=== PATIENT | female | born 1960 | race Caucasian/White ===

== ENCOUNTER 2018-04-07 18:02 | Outpatient (REF) | payer BC, SELFPAY ==
[2018-04-07 19:02] LABS: ALT 29 U/L (12-78); AST 21 U/L (15-37); Albumin 3.8 g/dL (3.4-5.0); Alkaline Phosphatase 112 U/L (46-116); Anion Gap 7.8 mmol/L (3-11); BUN 15 mg/dL (7-18); Bilirubin, Total 0.2 mg/dL (0.2-1.0); CO2 25.2 mmol/L (21.0-32.0); CREATININE 1.02 mg/dL (0.55-1.02); Calcium 8.5 mg/dL (8.5-10.1); Chloride 104 mmol/L (98-107); Estimated GFR 56.06 (mL/min/1.73m2); Glucose 120 mg/dL (70-100); Potassium 3.7 mmol/L (3.5-5.1); Sodium 137 mmol/L (136-145); Total Protein 7.2 g/dL (6.4-8.2)
[2018-04-07 19:34] LABS: HCT 41.4 % (36.0-46.0); HGB 14.2 g/dL (12.0-15.5); Mean Corp. HGB Concentration 34.3 g/dL (32.0-36.0); Mean Corpuscular Hemoglobin 30.7 pg (27.0-33.0); Mean Corpuscular Volume 89.6 fL (80-95); Mean Platelet Volume 9.9 fL (8.0-11.0); Platelet Count 257 x1000/uL (130-400); RBC 4.62 m/cumm (4.00-5.20); White Blood Cell Count 9.91 k/cumm (4.4-10.8)
== END 2018-04-07 18:22 ==
LOC: NCHCN 18:02
PROVIDERS: PCP Nurse Practitioner Family; Visit Provider Nurse Practitioner Family
DX: R11.0 Nausea (principal); R51 Headache
CPT/HCPCS: 80053; 85027

== ENCOUNTER 2018-09-08 14:21 | Outpatient (CLI) | payer BC, SELFPAY ==
--- NOTE | 2018-09-08 11:06 | DI.RAD_ITS ---
SYMPTOMS/DIAGNOSIS: COUGH X 2 WEEKS, R05 PA AND LATERAL CHEST: Comparison is made with August,. The heart size is normal. The lungs are well inflated and clear. No infiltrate or effusion is seen. IMPRESSION: Negative chest x-ray.
== END 2018-09-08 14:41 ==
PROVIDERS: PCP Nurse Practitioner Family; Visit Provider Nurse Practitioner Family
DX: R05 Cough (principal)
CPT/HCPCS: 71046

== ENCOUNTER 2018-11-23 15:11 | Emergency (ER) | payer BC, SELFPAY ==
[2018-11-23 15:17] VITALS: BP 119/87; PULSE 106; RESP 18; TEMP 37; O2SAT 94
--- NOTE | 2018-11-23 15:20 | ED.GENADUL_ITS ---
Discharge Plan Disposition Patient Disposition: HOME Condition: Good Discharge Details Chief Complaint: Dizzy/Sync Clinical Impression: Peripheral vertigo Primary Care Provider: Danita Gan ED Provider: Benjamin Martinez [place] Meds and New Rx's Prescriptions: New meclizine 25 mg tablet 25 mg PO BID-TID PRN (Reason: dizziness) Qty: 20 RF: 0 Continued fluocinolone 15 GM cream 1 moni Topical BID PRNQty: 15 RF: 4 ibuprofen 800 MG tablet 800 mg PO TID PRNRF: 0 acetaminophen [Acetaminophen Extra Strength] 500 MG tablet 1,000 mg PO Q6H PRNRF: 0 dextroamphetamine-amphetamine [Adderall] 10 MG tablet 10 mg PO BID prn Qty: 60 RF: 0 trazodone 50 MG tablet 75 mg PO HS PRNRF: 0 sertraline [Zoloft] 100 mg Tablet 100 PO DAILY RF: 0 bupropion HCl [Wellbutrin XL] 300 MG tablet extended release 24 hr 450 mg PO QAM RF: 0 Discharge Instructions Instructions: Benign Paroxysmal Positional Vertigo (ED) Additional Instructions: You may take the meclizine if the vertigo becomes bothersome. Typically will resolve on its own but if still on going by next week follow up with PCP or ENT. If you develop any neurological changes, headache, vision problems, inability to walk return to ED. Referrals: Danita Gan [Primary Care Provider] - Hugo Higginbotham MD [ [facility] STAFF PHYSICIAN] - Medical Decision Making Patient here with episodes of intense vertigo lasting seconds to minutes. She has a normal neurological exam. She has slight nystagmus with left gaze for 2-3 beats. She does not have persistent vertigo. She has no other symptomatology. This appears to be positional vertigo. We discussed use of meclizine but since her episodes do not last very long side effects may not be worth it. We discussed follow-up with primary care or ENT if continued symptoms into next week. She had been weaned off Effexor started on Zoloft which was titrated up. Do not think this is medication effect. Discussed warning signs to return for including headache, vision change, neurologic change, persistent vertigo. Patient EKG from triage is sinus rhythm with no acute changes. I do not think she needs imaging or labs at this time. ECG Data Attestation: I personally reviewed and interpreted this ECG (s) as follows: Prior ECG tracings: not available for review Interpretation: Sinus rhythm at a rate of 98. Normal axis and intervals. Nonspecific ST flattening but no acute depression or elevation. HPI General Mode of arrival: ambulatory . Date/Time Provider Initiated Documentation: 11/23/18 15:17 . Limitations to Documentation: no limitations . Information obtained by: patient . HPI Narrative: Patient presents to the ED with complaints of dizziness. Patient reports that for the last few days now she is having episodes of dizziness. They are especially bothersome when she rolls over in bed or changes position. The vertigo is not present continuously. It does resolve in seconds to minutes after moving. She does describe it as a spinning sensation. She has no headache or URI symptoms. She has had no hearing change. She has no chest pain, shortness of breath, palpitations. She denies nausea/vomiting. She has no difficulty ambulating. She has no other neurological symptoms. Related Data Home Medications Medication Instructions Recorded Confirmed fluocinolone 1 moni TOPICAL BID PRN #15 gm 03/23/15 11/23/18 acetaminophen [Acetaminophen Extra 1,000 mg PO Q6H PRN tab-cap 02/09/16 11/23/18 Strength] ibuprofen 800 mg PO TID PRN tab-cap 02/09/16 11/23/18 dextroamphetamine-amphetamine 10 mg PO BID prn #60 tab-cap 06/16/17 11/23/18 [Adderall] trazodone 75 mg PO HS PRN tab-cap NS 11/28/17 11/23/18 bupropion HCl [Wellbutrin XL] 450 mg PO QAM 11/23/18 11/23/18 meclizine 25 mg PO BID-TID PRN #20 tab 11/23/18 sertraline [Zoloft] 100 PO DAILY 11/23/18 Previous Rx's Medication Instructions Recorded meclizine 25 mg PO BID-TID PRN #20 tab 11/23/18 Allergies Allergy/AdvReac Type Severity Reaction Status Date / Time No Known Allergies Allergy Unverified 01/16/18 08:44 Review of Systems Review of Systems As documented in HPI otherwise negative as below. Const: no fever, chills, weakness Resp: no cough, SOB, pleuritic pain CV: no CP, diaphoresis, edema, syncope GI: no abdominal pain, nausea, vomiting, diarrhea Neuro: no headache, numbness, focal weakness, confusion PFSH Medical History Depressive disorder (Chronic) Tobacco dependence (Chronic) Surgical History PROCEDURES (Resolved) Colonoscopy - MAC (Inactive 01/16/18) Family History Mother Essential hypertension Hyperlipidemia Neoplasm Father Essential hypertension Heart disease Stroke Asthma Sister Essential hypertension Arthritis Depression Hyperlipidemia Grandfather Essential hypertension Heart disease Stroke Grandfather Asthma Grandmother No problems noted. Grandmother Myocardial infarction Neoplasm Maternal Cousin Neoplasm Stroke Maternal Aunt Neoplasm Nephew Neoplasm Sister Alcohol abuse Essential hypertension Hyperlipidemia Social History Smoking/Tobacco Use Status: Current every day Tobacco Type: cigarettes Smoking cigarettes per day: 8 Alcohol Intake: never Drug use: Occasionally Substance use type: marijuana Do you feel safe at home: Yes Do you feel safe in your relationship?: Yes Exam Narrative Exam Narrative: Vitals: Initially, mildly tachycardic which resolved. Afebrile. Const: WDWN female in NAD. HEENT: NC/AT. Normal facial exam. OP normal. TMs normal. Eyes: Normal conjunctiva and sclera. PERRL and EOMI. Two to three beat horiz ontal nystagmus with left gaze. Neck: Supple. Trachea midline. Lungs: Normal respiratory effort. Lungs are clear. Cor: RRR without murmur/gallop. Good radial pulses. Neuro: A+O x 3. CN II-XII are in tact. Speech is normal. Mental status is normal. Strength is 5/5 throughout. Sensory is normal. FTN, HTS is normal. Gait normal. Ext: No C/C/E. No deformity or tenderness. Skin: Warm and dry without rash.
[2018-11-23 16:12] VITALS: BP 123/66; PULSE 91; RESP 18; O2SAT 94
[2018-11-23 16:25] VITALS: BP 123/66; PULSE 91; RESP 18; TEMP 37; O2SAT 94
== END 2018-11-23 16:21 | disposition home or self-care (01) ==
PROVIDERS: Emergency Provider Emergency Medicine; PCP Nurse Practitioner Family
DX: H81.392 Other peripheral vertigo, left ear (principal)
CPT/HCPCS: 93005; 99283; 93010

== ENCOUNTER 2019-05-24 19:39 | Outpatient (REF) | payer BC, SELFPAY ==
[2019-05-24 19:14] LABS: HCT 39.3 % (36.0-46.0); HGB 13.4 g/dL (12.0-15.5); Mean Corp. HGB Concentration 34.1 g/dL (32.0-36.0); Mean Corpuscular Hemoglobin 29.9 pg (27.0-33.0); Mean Corpuscular Volume 87.7 fL (80-95); Mean Platelet Volume 9.4 fL (8.0-11.0); Platelet Count 268 x1000/uL (130-400); RBC 4.48 m/cumm (4.00-5.20); RBC Distribution Width 13.5 % (11.7-14.6); White Blood Cell Count 6.67 k/cumm (4.4-10.8)
[2019-05-24 19:22] LABS: Iron 79 ug/dL (50-175); Total Iron Binding Capacity 286 ug/dL (250-450); Transferrin Sat 28 % (15-50)
[2019-05-24 19:40] LABS: Anion Gap 14.1 mmol/L (3-11); BUN 11 mg/dL (7-18); CO2 23.9 mmol/L (21.0-32.0); CREATININE 1.05 mg/dL (0.55-1.02); Calcium 8.9 mg/dL (8.5-10.1); Chloride 103 mmol/L (98-107); Estimated GFR 54.02 (mL/min/1.73m2); Glucose 104 mg/dL (70-100); Potassium 3.9 mmol/L (3.5-5.1); Sodium 141 mmol/L (136-145); TSH (W/Ref FT4) 1.86 uIU/mL (0.36-3.74)
[2019-05-24 20:25] LABS: Vitamin D 25 Total 17.1 ng/ml (30-100)
[2019-05-24 20:33] LABS: Vitamin B12 434 pg/mL (193-986)
== END 2019-05-24 19:59 ==
LOC: NCHCN 19:39
PROVIDERS: PCP Nurse Practitioner Family; Visit Provider Nurse Practitioner Family
DX: R53.83 Other fatigue (principal); H81.10 Benign paroxysmal vertigo, unspecified ear
CPT/HCPCS: 80048; 82306; 85027; 82607; 83540; 83550; 84443

== ENCOUNTER 2019-09-13 15:00 | Outpatient (CLI) | payer BC, SELFPAY ==
--- NOTE | 2019-09-13 15:19 | DI.RAD_ITS ---
EXAM: XR HIP RT COMPLETE AND AP PELVIS INDICATION: RIGHT HIP PAIN. COMPARISON: No exams were available for comparison TECHNIQUE: 2D digital imaging was performed. FINDINGS: There are severe degenerative changes of the right hip. There is now obliteration of the superior donavon int space and subchondral cyst formation. There is slight deformity of the superior acetabulum and f emoral head. There is spurring from the margins of the femoral head. There is spurring at the left hip without joint space narrowing. SI joints are unremarkable. IMPRESSION: Severe degenerative changes of the right hip.
== END 2019-09-13 15:20 ==
PROVIDERS: PCP Nurse Practitioner Family; Visit Provider Physician Assistant
DX: M25.551 Pain in right hip (principal); M16.11 Unilateral primary osteoarthritis, right hip
CPT/HCPCS: 73502

== ENCOUNTER 2019-12-10 02:55 | Outpatient (CLI) | payer BC, SELFPAY ==
[2019-12-10 14:02] LABS: HCT 41.6 % (36.0-46.0); HGB 14.5 g/dL (12.0-15.5); Mean Corp. HGB Concentration 34.9 g/dL (32.0-36.0); Mean Corpuscular Hemoglobin 30.5 pg (27.0-33.0); Mean Corpuscular Volume 87.6 fL (80-95); Mean Platelet Volume 8.5 fL (8.0-11.0); Platelet Count 262 x1000/uL (130-400); RBC 4.75 m/cumm (4.00-5.20); RBC Distribution Width 12.8 % (11.7-14.6); White Blood Cell Count 9.46 k/cumm (4.4-10.8)
[2019-12-10 15:10] LABS: Anion Gap 11.3 mmol/L (3-11); BUN 16 mg/dL (7-18); CO2 26.7 mmol/L (21.0-32.0); CREATININE 1.24 mg/dL (0.55-1.02); Calcium 9.8 mg/dL (8.5-10.1); Chloride 101 mmol/L (98-107); Estimated GFR 44.43 (mL/min/1.73m2); Glucose 82 mg/dL (74-106); Potassium 4.4 mmol/L (3.5-5.1); Sodium 139 mmol/L (136-145)
== END 2019-12-10 03:15 ==
PROVIDERS: PCP Nurse Practitioner Family; Visit Provider Student in an Organized Health Care Education/Training Program
DX: M25.551 Pain in right hip (principal); M16.11 Unilateral primary osteoarthritis, right hip; Z01.818 Encounter for other preprocedural examination; Z01.812 Encounter for preprocedural laboratory examination
CPT/HCPCS: 36415; 80048; 85027; 86850; 86900; 86901

== ENCOUNTER 2019-12-10 09:02 | Outpatient (CLI) | payer BC, SELFPAY ==
[2019-12-13 15:08] LABS: COVID-19 RT-PCR UVMMC Result Negative (Negative)
== END 2019-12-10 09:22 ==
PROVIDERS: PCP Nurse Practitioner Family; Visit Provider Student in an Organized Health Care Education/Training Program
DX: Z11.59 Encounter for screening for other viral diseases (principal); Z01.818 Encounter for other preprocedural examination; M16.11 Unilateral primary osteoarthritis, right hip
CPT/HCPCS: U0003

== ENCOUNTER 2019-12-14 09:02 | Observation (INO) | payer BC, SELFPAY ==
[2019-12-14] VITALS (22 sets, daily range): BP systolic 71–115; BP diastolic 34–68; PULSE 71–97; RESP 10–18; TEMP 36.2–36.6; O2SAT 92–100
--- NOTE | 2019-12-14 08:48 | HPE_ITS ---
Date of service: 12/14/19 Assessment and Plan Assessment and plan (1) Arthritis of right hip: Status: Acute Assessment and plan: Right total hip replacement Details of surgery were discussed with patient as well as risks and pertinent anatomy. All questions were answered. History of Present Illness History of Present Illness Chief Complaint: Right hip pain Narrative: Bre is a 59-year-old female who comes in for surgery today for a right total hip replacement. She states that her right hip has been bothering her for many months, and almost a year. Over that time she has had treatment with a chiropractor and manipulation, as well as an injection for trochanteric bursitis on the right hip. She states that she did not get significant relief from this injection, and the manipulations have not had the desired effect over the last many months. She has pain especially when ascending stairs, and when she tries to ambulate after seated for a long period of time. She has had x-rays done which reveal pretty severe arthritis of the right hip including a complete loss of joint space and bone spurring throughout the acetabulum and femoral head. Since she is failed conservative treatment, Dr. Cano does offer a right total hip replacement, and Bre is anxious to proceed. Pertinent Surgical Information Patient denies history of hypertension, CVA, CO, angina, asthma, COPD, renal or liver disorders, hepatitis, bleeding disorders, diabetes, immune or thyroid disorders. No complications from anesthesia. Review of Systems Constitutional Constitutional: Denies fever(s) ENT Ears, Nose, Mouth, and Throat: Denies dizziness and Denies sore throat Cardiovascular Cardiovascular: Denies chest pain, Denies palpitations and Denies dyspnea Respiratory Respiratory: Denies cough and Denies dyspnea Gastrointestinal Gastrointestinal: Denies abdominal pain, Denies melena, Denies hematochezia, Denies diarrhea, Denies nausea and Denies vomiting Genitourinary Genitourinary: Denies hematuria and Denies dysuria Neurologic Neurologic: Denies dizziness Endocrine Endocrine: Denies palpitations [facility] Medical History Arthritis of right hip (Acute) Depressive disorder (Chronic) hospitalized 2009 Greater trochanteric bursitis of right hip (Acute) Injection: 06/30/19; 09/30/16 History of electroconvulsive therapy (Acute) Tobacco dependence (Chronic) Surgical History Colonoscopy - MAC (Inactive 01/16/18) PROCEDURES (Resolved) bilat shoulders, calcium deposits & r side trimmed clavicle.HE Family History Mother Essential hypertension Hyperlipidemia Neoplasm LUNG/BREAST Father Essential hypertension Heart disease A Fib Stroke Asthma Sister Essential hypertension Arthritis Severe spine Depression Hyperlipidemia Grandfather Essential hypertension Heart disease Stroke Grandfather Asthma Grandmother No problems noted. Grandmother Myocardial infarction Neoplasm BREAST Maternal Cousin Neoplasm BREAST Stroke Maternal Aunt Neoplasm BREAST Nephew Neoplasm BRAIN Sister Alcohol abuse Essential hypertension Hyperlipidemia Social History Smoking/Tobacco Use Status: Current every day Tobacco Type: cigarettes Alcohol Intake: never Drug use: Occasionally Substance use type: marijuana Current gender identity: female Do you feel safe at home: Yes Do you feel safe in your relationship?: Yes Meds Home Medications and Allergies Home Medications Medication Instructions Recorded Confirmed Type acetaminophen [Acetaminophen Extra 1,000 mg PO Q6H PRN tab-cap 02/09/16 12/08/19 History Strength] ibuprofen 800 mg PO TID PRN tab-cap 02/09/16 12/08/19 History dextroamphetamine-amphetamine 10 mg PO BID #60 tab-cap 06/16/17 12/08/19 History [Adderall] trazodone 50 mg PO HS PRN tab-cap NS 11/28/17 12/08/19 History bupropion HCl [Wellbutrin XL] 450 mg PO QAM 11/23/18 12/08/19 History sertraline [Zoloft] 150 mg PO DAILY 11/23/18 12/08/19 History dextroamphetamine-amphetamine ER 20 mg PO DAILY 06/30/19 12/08/19 History 20 mg 24hr capsule,extend release tramadol 50 mg tablet 50 mg PO QHS #21 tab 10/20/19 12/08/19 Rx Allergies Allergy/AdvReac Type Severity Reaction Status Date / Time No Known Allergies Allergy Unverified 12/08/19 12:37 Exam Const General: cooperative and no acute distress Orientation: alert and awake HENIA Head: normocephalic and atraumatic General nose exam: no nasal discharge Eyes Conjunctivae: conjunctivae normal Sclera: sclerae normal Resp Effort & Inspection: normal respiratory effort Auscultation: clear to auscultation bilaterally and no wheezes Cardio Rate: regular rate Rhythm: regular rhythm Heart Sounds: S1 normal, S2 normal and no murmurs GI Palpation: soft, no hepatosplenomegaly and nontender Auscultation: normal bowel sounds
[2019-12-14] MEDS: Lactated Ringers 1,000 ML 80 ML IV ×3 (09:47→16:49)
--- NOTE | 2019-12-14 10:15 | DI.RAD_ITS ---
EXAM: XR HIP RT IN OR CLINICAL HISTORY: right total hip arthroplasty TECHNIQUE: 2D and realtime digital imaging was performed. Fluoroscopy was provided in the OR COMPARISON: No exams were available for comparison FINDINGS: C-arm fluoroscopy was utilized by Dr. Cano during total right hip joint replacement. Hard copy s hows total hip joint replacement in position. Fluoro time was 51.7 seconds. IMPRESSION: RADIATION DOSE DELIVERED: Total DLP
[2019-12-14] MEDS: Acetaminophen 500 MG TAB 1000 MG PO ×2 (10:19→16:24)
[2019-12-14] MEDS: Celecoxib 200 MG CAP 400 MG PO (10:19)
[2019-12-14] MEDS: ceFAZolin 2 GM/50 ML BAG IVPB (11:12)
[2019-12-14] MEDS: Ketorolac 30 MG/ML VIAL (11:55)
[2019-12-14] MEDS: Bupivacaine 0.25% Pres-Free 30 ML VIAL (12:02)
[2019-12-14] MEDS: HYDROmorphone 2 MG/ML VIAL IVP ×2 (13:26→13:39)
[2019-12-14] MEDS: Normal Saline Flush 10 ML SYR IV (13:26)
--- NOTE | 2019-12-14 14:06 | W.PM.OP ---
Date of service: 12/14/19 Time of Service: 13:06 Operative Note Operative Note DATE OF PROCEDURE: 12/14/19 PRE-OP DIAGNOSIS: Right Hip Osteoarthritis POST-OP DIAGNOSIS: same PROCEDURE: Right Anterior Total Hip Arthroplasty SURGEON: Daniel Cano FREIGHT CAR INSPECTOR: Samantha Rosario ANESTHESIA: spinal ESTIMATED BLOOD LOSS: 300 PATHOLOGY: none sent TOURNIQUET TIME: 0 COMPLICATIONS: None Patient was transported to: PACU Patient's condition: stable Implants: 1. Depuy [place] Acetabular Component, 52mm 2. Depuy Acetabular Liner, 39w98mc 3. Depuy Corail Standard Collared Femoral Stem, Size 10 4. Depuy Altrx Ceramic Femoral Head, Size 32+5mm Indications: I have seen Bre in clinic for symptoms of hip arthritis, confirmed with radiographic findings. Bre has exhausted nonoperative methods and was having significant limitations in daily function and desired better function and less pain. I discussed the technical details of a hip replacement. I explained the risks of the procedure to include, but not limited to, bleeding, infection, pain, stiffness, fracture, damage to nerves and vessels, damage to muscles and tendons, loosening, instability, leg length inequality, need for repeat procedure, blood clot and cardiopulmonary demise. Despite these risks, she elected to proceed. Findings: There was significant signs of arthritis throughout the hip. Large osteophytes were present around the femoral neck as well as a significant floor osteophyte. Procedure Description: Bre was greeted in the preoperative holding area where the correct side was identified and marked. The consent was reviewed with the patient and signed. The history and physical was updated. All questions were answered. Bre was taken back to the operating room. A spinal anesthestic was then administered. The patient was placed into the supine position on the operating room table. The patient was then positioned onto the ARCH table. Both feet were wrapped with [place] cotton wrap along with Coban. The feet were placed in specialized boots for the ARCH table, well seated within the boot and secured. SCDs were applied. The patient was then slid down onto a peroneal post and the nonoperative leg was secured in a leg lemons attached to the table. The operative side was placed into the ARCH table attachment and bed height and positioning was secured. A preoperative AP pelvis was obtained to serve as a reference for determining leg lengths. Prophylactic antibiotics in the form of Cefazolin were administered. 1g of Tranxemic Acid was given intravenously within 30 minutes of incision. The right leg was then prepped with Chloraprep and draped in a standard fashion. A second prep with Chloraprep was performed prior to placement of a shower-curtain type drape with Iodine impregnated skin protection. A timeout to confirm correct identity, side and site, procedure, allergies, anesthesia, and medical concerns was performed. An obliquely oriented incision was made starting lateral to the ASIS and running distal over the Tensor Fascia Maggi (TFL) muscle belly toward the fibular head, approximately 10cm. The skin and soft tissue was dissected sharply, through Dawn?s fascia, and to the fascia of the TFL. With the fascia and superior border of the IT band identified, the fascia was incised with a new knife just above any perforators from the IT band. The TFL muscle belly was bluntly dissected away from the fascia and moved laterally. The fat between TFL and rectus was identified to ensure the dissection was not within the TFL. Blunt dissection created space between abductors and the capsule and retractor was placed over the lateral femoral neck. The fibers of the rectus femoris tendon were identified and these were freed from the anterior capsule. A second cobra retractor was placed around the medial femoral neck. The TFL was further retracted laterally to show the deep fascia. Careful dissection through this layer identified three main crossing vessels of the lateral femoral circumflex. These were cauterized in multiple locations and then cut without any noticeable bleeding. The TFL was further released bluntly from the deep fascia to expose anterior hip capsule and fat The Angelo orthopaedic retractor was then placed beneath the TFL and against sartorius and medial soft tissues to protect and retract the soft tissues. A T-capsulotomy was then performed starting at the superior lateral acetabulum and moving distally to the intertrochanteric ridge. These capsular flaps were tagged with a No. 1 Ethibond and elevated from within. The capsular flaps were released to the shoulder of the lateral neck and to the lesser trochanter to give excellent visualization of the proximal femur. A neck osteotomy was performed using an oscillating saw based on preoperative templates. This cut started in the shoulder and of the lateral neck and exited medially. The saw was at all times directed medially to avoid injury to the greater trochanter. 6cm of traction was applied to the leg and the osteotomy opened. The femoral head was removed with a corkscrew, making sure to protect the TFL on its exit. This was measured on the back table to determing the starting reamer size. Portions of the rectus obscuring visualization were minimally elevated off the superior acetabulum. An anterior retractor was placed over the anterior wall between capsule and labrum and attached to the Gripper retraction system. A posterior retractor was placed similarly. This provided excellent visualization. The contents of the cotyloid fossa were removed with electrocautery and the labrum was removed with a knife. There was a notable floor osteophyte. There was significant chondromalacia of the superior acetabulum. Acetabular reaming began with a 48 mm reamer. This first reaming was directed anterior to posterior and medial to get down to the true floor. This was inspected and reamed until the true floor was reached. I then reamed sequentially up to a 52 mm reamer where good fit was obtained. The larger reamers were oriented based on anatomical reference of the anterior and lateral cornelius to ensure proper abduction and anteversion. Positioning and size was confirmed with the fluoroscopy. A 52 mm Depuy [place] acetabular component was selected. The deep tissues were irrigated. The acetabular component was then impacted in a position of about 40-45 degrees of abduction and 15-20 degrees of anteversion, using the patient?s anatomy as the ultimate landmark. Fluoroscopy was used to confirm this. There was excellent canal superintendent of the acetabular component and the inserting handle was removed. The acetabular liner, Depuy [id number] polyethylene liner, was inserted and lined up with the tines of the acetabular component. There was no soft tissue interposition. The liner was then impacted into position and confirmed to be well-seated. A portion of the wendy-articular cocktail was then injected around the acetabulum into the capsule and periosteum. This cocktail consisted of 50cc of 0.25% Bupivicaine and 20cc of Exparel, expanded to a total of 120cc. Traction was released from the femur. The leg was rotated to 120 degrees. Any remaining medial capsule was released until the lesser trochanter was easily palpable. A Bryan retractor was placed medially. The lateral capsule was further released into the shoulder to allow access to the greater trochanter. A Bryan retractor was placed over the greater trochanter which allowed the trochanter to flip in front of the capsule for excellent exposure. The leg was brought down into maximal extension and 20 degrees of adduction while ensuring there was no impingement on the acetabulum. Any remnant capsule within the trochanter was released. Piriformis and obturator externis were identified and protected. There was excellent access to the proximal femur. The lateral neck remnant was removed with a rongeur. A blunt canal probe was used to identify the canal and trajectory for later broaching. A box osteotome initiated the broach course. A small curved rasp and a curved curette were used to work laterally. Broaching then began with a size 8 Corail broach. This was inserted manually around the trochanter and into the canal before mallet blows. The broach was seated to a few millimeters below the cut level based on the neck cut and the preoperative template. Sequential broaching was continued with the [employer] pneumatic broaching device until a tight fit was obtained with good rotational control of the femur. A trial standard neck was inserted along with a +1 trial head. The leg was brought out of extension and adduction and then reduced with traction and internal rotation. The leg was stable anteriorly in a position of 30 degrees of extension and 90 degrees of external rotation. Fluoroscopy was used to ensure there was no fracture and the stem was seated well. Leg lengths were checked with an AP pelvis and pelvic reference points. She seemed to be a little under offset as well as leg lengths based on visual inspection as well as the use of joint point navigation. A +5 head would re-create the offset and also give the needed 4 mm of leg length. Once content with the desired offset and leg lengths, the leg was brought back into extension, external rotation and adduction. The periosteum and surrounding tissue was injected with remaining portion of the wendy-articular cocktail. The proximal femur was irrigated as well as the deep tissues. The Depuy Corail standard collared stem, size 10, was then manually inserted into the proximal femur making sure to control rotation. It was then malleted into position with light blows, giving breaks to allow bone expansion and decrease risk of fracture. The selected Depuy Altrx Ceramic Head, size 32+5mm, was then placed onto the clean and dry trunnion and secured with impaction onto the tapered fit. The leg was brought back out of extension and adduction and reduced with traction and internal rotation. Stability was confirmed with no shuck at 90 degrees of external rotation and 30 degrees of extension. No impingement through range of motion arc. Final x-ray images were obtained with fluoroscopy to confirm adequate positioning and no intraoperative fracture. The deep tissues were thoroughly irrigated with Irrisept chlorhexadine solution. The second dose of TXA 1g was administered intravenously. The capsule was then reapproximated with the previously placed Ethibond sutures. The TFL fascia was finally closed with a No. 2 Stratafix, barbed suture. Deep tissues were then reapproximated with 0 Vicryl and a running 2-0 Vicryl. The skin was closed with a running 4-0 Monocryl in a subcuticular fashion. This was reinforced with skin glue. A Mepilex silver dressing was applied. At the end of the case, all counts were correct. Bre was transferred to the hospital bed without difficulty and suffering no apparent complication. Bre has a good prognosis. Physical therapy will start today and without restrictions, weight-bearing as tolerated. Aspirin 81mg BID will be used for DVT prophylaxis.
--- NOTE | 2019-12-14 14:16 | DSE_ITS ---
Date of service: 12/14/19 Time of Service: 14:16 DS: Diagnosis Discharge Diagnosis (1) Arthritis of right hip: Status: Acute Discharge Plan Disposition Patient Disposition: HOME Condition: Good Discharge Details Reason For Visit: TOTAL HIP Admit Date/Time: 12/14/19 09:02 Admit Provider: Daniel Cano Attending Provider: Daniel Cano Primary Care Provider: Danita Gan [facility] Hospital Course: Patient was admitted to the medical/surgical floor following the procedure. It was tolerated well without any notable medical, surgical, or anesthetic complications. Mobilization began postoperatively. Vitals were stable. Physical therapy worked with the patient and was cleared for discharge home. No acute medical issues. Home Meds and New Rx's Prescriptions: New aspirin 81 mg tablet,delayed release (DR/EC) 81 mg PO BID Qty: 60 RF: 0 acetaminophen 500 mg tablet 1,000 mg PO Q8H PRN (Reason: pain) Qty: 90 RF: 3 pantoprazole 40 mg tablet,delayed release (DR/EC) 40 mg PO DAILY Qty: 30 RF: 0 ibuprofen 600 mg tablet 600 mg PO TID PRNQty: 90 RF: 3 oxycodone 5 mg tablet 5 mg PO Q4H Qty: 18 RF: 0 Continued dextroamphetamine-amphetamine [Adderall XR] 20 mg capsule,extended release 24hr 20 mg PO DAILY RF: 0 dextroamphetamine-amphetamine [Adderall] 10 MG tablet 10 mg PO BID Qty: 60 RF: 0 trazodone 50 MG tablet 50 mg PO HS PRNRF: 0 sertraline [Zoloft] 100 mg Tablet 150 mg PO DAILY RF: 0 bupropion HCl [Wellbutrin XL] 300 MG tablet extended release 24 hr 450 mg PO QAM RF: 0 Discontinued ibuprofen 800 MG tablet 800 mg PO TID PRNRF: 0 acetaminophen [Acetaminophen Extra Strength] 500 MG tablet 1,000 mg PO Q6H PRNRF: 0 tramadol 50 mg tablet 50 mg PO QHS Qty: 21 RF: 0 Discharge Instructions Additional Instructions: Dr. Cano?s Total Hip Discharge Instructions Activity: The most important activity is to walk. You should try to take short walks a few times a day. You have no restrictions on movement or positioning, but do not try to force what you do. You will find some stiffness and weakness with hip flexion (lifting your knee). Do not try to strengthen this too early, continue to practice walking and stairs and this will come. It is normal to have pain and some of this will respond to ice, massage, and sometimes heat. Repositioning may also provide relief. - Outpatient physical therapy can be helpful to help return you to a normal gait and improve your flexibility and strength. This can start around 2 weeks. For some patients, it?s not necessary. Usually this is determined at the time of discharge or at the first post-operative visit. - You should wear the MARYSE hose on both legs for 2 weeks. Dressing: Keep the surgical dressing in place for at least one week. After the first week it may be removed and replace with light gauze and tape or nothing. It may get wet after 3 days but avoid soaking the dressing. If it gets wet, just lightly pat dry. It is important to always keep some gauze between skin folds, especially when you are sitting. Spend some time with the wound exposed when you are lying flat as the incision does wrinkle onto itself. Medications: - You should take Tylenol and an anti-inflammatory Ibuprofen as your primary pain control medications - You have been prescribed a stronger pain medication Oxycodone for breakthrough pain, take as needed as prescribed. - You have also been prescribed a stomach acid reduction agent Pantoprozole to help reduce stomach acid and reflux. - You will be taking Aspirin 81mg twice a day for DVT prevention unless instructed otherwise. - If you have constipation you should take Colace or Miralax (both [id number]). It takes most people 3-4 days to have a bowel movement. Follow-up: 2 weeks. If you have any issues or concerns, you should contact Dr. Cano's office at [phone] or directly at [phone]. Referrals: Daniel Cano MD [ [facility] STAFF PHYSICIAN] - Activity:: Activity as Tolerated Equipment/Supplies:: Walker Diet:: As Tolerated Discharge Orders Discharge Orders: Discharge Order (Routine); Ordered 12/14/19 Ordered By: Daniel Cano DS: Summary Status at Discharge Functional status at discharge: uses cane/walker Overall status at discharge: patient is progressing back to baseline Mental Status: mental status grossly normal Speech and Movement: speech and movement normal Mood: congruent mood Affect: normal affect Exam Psych Mental Status: mental status grossly normal Speech and Movement: speech and movement normal Mood: congruent mood Affect: normal affect DS: Data Vitals/I&O Vitals and I&O: Vital Signs Temperature 36.4 C L 12/14/19 14:10 Pulse 73 12/14/19 14:10 Pulse Rhythm Regular 12/14/19 09:19 Respiratory Rate 12 12/14/19 14:10 Respiratory Effort 12/14/19 09:19 Respiratory Depth Deep 12/14/19 09:19 Respiratory Pattern Normal 12/14/19 09:19 Blood Pressure 89/45 L 12/14/19 14:10 Pulse Oximetry 97 12/14/19 14:10 Respiratory End-tidal CO2 33 12/14/19 14:10 Oxygen Delivery Method Nasal Cannula 12/14/19 14:10 Oxygen Flow Rate 2 12/14/19 14:10 Pain Level 3 12/14/19 14:10 Intake & Output 12/13/19 12/14/19 12/14/19 23:59 11:59 23:59 Intake Total 110 / 1170 1060 / 1170 Output Total 350 / 350 Balance 110 / 820 710 / 820 Weight 90.8 kg Intake: IV 110 / 1170 1060 / 1170 Output: Estimated Blood Loss 350 / 350 Other: Emesis Description None [facility] Medical History Arthritis of right hip (Acute) Depressive disorder (Chronic) hospitalized 2009 Greater trochanteric bursitis of right hip (Acute) Injection: 06/30/19; 09/30/16 History of electroconvulsive therapy (Acute) Tobacco dependence (Chronic) Surgical History Colonoscopy - MAC (Inactive 01/16/18) PROCEDURES (Resolved) bilat shoulders, calcium deposits & r side trimmed clavicle.HE Family History Mother Essential hypertension Hyperlipidemia Neoplasm LUNG/BREAST Father Essential hypertension Heart disease A Fib Stroke Asthma Sister Essential hypertension Arthritis Severe spine Depression Hyperlipidemia Grandfather Essential hypertension Heart disease Stroke Grandfather Asthma Grandmother No problems noted. Grandmother Myocardial infarction Neoplasm BREAST Maternal Cousin Neoplasm BREAST Stroke Maternal Aunt Neoplasm BREAST Nephew Neoplasm BRAIN Sister Alcohol abuse Essential hypertension Hyperlipidemia Social History Smoking/Tobacco Use Status: Current every day Tobacco Type: cigarettes Alcohol Intake: never Drug use: Occasionally Substance use type: marijuana Current gender identity: female Do you feel safe at home: Yes Do you feel safe in your relationship?: Yes
[2019-12-14] MEDS: ePHEDrine 50 MG/ML VIAL (14:20)
[2019-12-14] MEDS: ceFAZolin 1 GM/50 ML BAG IVPB (16:05)
[2019-12-14] MEDS: oxyCODONE 5 MG TAB PO (17:46)
--- NOTE | 2019-12-14 17:48 | PT.INIE ---
Date of service: 12/14/19 Time of Service: 17:48 PT Notes Visit Reasons: TOTAL HIP Inpatient Physical Therapy Evaluation Date: December 14, 2019 Referring Doctor: Daniel Cano PT Orders: PT CONSULT: Precautions: Standard, WBAT R LE Patient Profile/Admitting Diagnosis: Bre is a 59 year old female s/p right DANA via Dr Cano. Patient has had a long standing history of chronic right hip pain. PMHX: Arthritis of right hip (Acute) Depressive disorder (Chronic) hospitalized 2009 Greater trochanteric bursitis of right hip (Acute) Injection: 06/30/19; 09/30/16 History of electroconvulsive therapy (Acute) Tobacco dependence (Chronic) Surgical History Colonoscopy - MAC (Inactive 01/16/18) PROCEDURES (Resolved) bilat shoulders, calcium deposits & r side trimmed clavicle. Social History/Home Situation: Vanessa lives with her . She reports 3 steps to enter with bilateral railings. She reports once in her home everything is on one level. She reports she has all equipment at home already noting of a walker, crutches, raised toilet seat, shower chair with grab bars in her bathroom. She notes that her sister will be coming to stay with her during the day while her is at work at least for the first week. Current Functional Limitations: WBAT R LE Equipment Owned/DME: raised toilet seat, walker, crutches, grab bars, shower chair Subjective: Bre notes that she is doing well. Has very little to no pain at rest with movement 3-4/10 on VAS. She is hopeful to be going home tonight. She notes that her sister is coming to stay with her for the next week while her is at work during the day. Objective: General Observation: IV Left UE Mental Status: Alert and oriented x3 Pain: 0-1/10 at rest, 3-4/10 with activity, increased to a 5/10 after ambulation Vital Signs: BP 106/67 mmHg; HR 94 bpm; O2 saturation 98% on room air ROM: Right Upper Extremity: Demonstrates within normal limits active right upper extremity range of motion Left Upper Extremity: Demonstrates within normal limits active left upper extremity range of motion Right Lower Extremity: Hip flexion 100 degrees in seated position, knee and ankle within normal limits Left Lower Extremity: Hip flexion 120 degrees, knee and ankle range of motion within normal limits Strength: Right Upper Extremity: Demonstrates 5/5 right upper extremity strength Left Upper Extremity: Demonstrates 5/5 left upper extremity strength Right Lower Extremity: Hip flexion 3+/5, knee extension 4/5, knee flexion 4/5, dorsiflexion/plantarflexion 5/5 Left Lower Extremity: Demonstrates 5/5 left lower extremity strength Bed Mobility/Transfers: Supine?sit: Independent Sit?supine: Independent Sit?stand: Independent Stand?sit: Independent Bed?chair: Supervision with front wheeled walker Gait: FWW, WBAT R LE, 150 ft with supervision only, no loss of balance. Did complain of slight increased irritation 5/10 post ambulation right hip Balance: Static Sitting: Normal Dynamic Sitting: Normal Static Standing: Good Dynamic Standing: Good Special Tests: Mobility Limitations Standardized Measure [facility] 6 clicks Basic Mobility Inpatient Short Form: Raw Score: 22 CMS Score: 21% Informed Consent/Education: Patient instructed in purpose of PT consult and plan of care. Assessment: Patient is a 59 year old female referred to physical therapy services with the diagnosis of s/p right DANA. Patient presents with clinical signs and symptoms consistent with diagnosis, as demonstrated by the following impairment level findings: impaired joint mobility of right hip, impaired muscle performance and motor function with need of assistive device for ambulation and functional ADL's. Demonstrated good independence with functional transfers and bed mobility. Supervision only with ambulation with use of front wheeled walker with no loss of balance. Anticipated patient will return home tonight via MD discharge. Patient is assessed as a Low 47275 complexity based on the following: History: As above Examination: As above Presentation: Stable Decision Making: Low Plan of Care/Treatment Plan: Anticipate patient will be discharged home this evening via Dr. Cano's order. She will continue with use of front wheeled walker for ambulation and ADLs to ensure safety and independence. She will follow-up with Dr. Cano postoperatively in clinic with outpatient PT if needed. Discharge from PT services at this time. DISCHARGE RECOMMENDATIONS: Home per MD order TREATMENT CODE/TIME: 96381 20 minutes 17:25PM Thank you for this referral! Sherley Bryant, [facility] Disclaimer: This note was created using [employer] voice recognition software. It was reviewed for major content. However, there may be multiple small discrepancies and errors due to the voice recognition aspects of the software.
== END 2019-12-14 18:22 | disposition home or self-care (01) ==
LOC: PDS 13:39 → MS 14:17
PROVIDERS: Admitting Provider Student in an Organized Health Care Education/Training Program; PCP Nurse Practitioner Family; Visit Provider Student in an Organized Health Care Education/Training Program
PROC: 0SR904A Replacement of Right Hip Joint with Ceramic on Polyethylene Synthetic Substitute, Uncemented, Open Approach (ICD-10-PCS; CPT 27130; principal; 2019-12-14 11:45)
DX: M16.11 Unilateral primary osteoarthritis, right hip (principal); M25.551 Pain in right hip; Z96.641 Presence of right artificial hip joint
CPT/HCPCS: 27130; C1776; 97161; NC; 73501; G0378; J0690; J1885; J2001; J2370; J2405; J2704

== ENCOUNTER 2019-12-31 10:57 | Outpatient (CLI) | payer BC, SELFPAY ==
--- NOTE | 2019-12-31 10:15 | DI.RAD_ITS ---
EXAM: XR HIP RT COMPLETE AP PELVIS INDICATION: f/u R DANA. COMPARISON: CR XR HIP RT COMPLETE AP PELVIS from 09/13/2019 XR HIP RT IN OR from 12/14/2019 TECHNIQUE: 2D digital imaging was performed. FINDINGS: There is a right hip prosthesis which appears unchanged in alignment when compared with intraoperati ve image. No periprosthetic lucencies are seen. There is acetabular spurring of the right hip. The joint space is well maintained. DATA REPOSITORY: RADIATION DOSE DELIVERED:
== END 2019-12-31 11:17 ==
PROVIDERS: PCP Nurse Practitioner Family; Referring Provider Nurse Practitioner Family; Visit Provider Student in an Organized Health Care Education/Training Program
DX: M16.11 Unilateral primary osteoarthritis, right hip (principal); Z96.641 Presence of right artificial hip joint; Z47.1 Aftercare following joint replacement surgery
CPT/HCPCS: 73502

== ENCOUNTER 2020-12-26 02:26 | Outpatient (CLI) | payer BC, SELFPAY ==
--- NOTE | 2020-12-26 12:12 | DI.MAMMO_ITS ---
Exam(s) MAMMO SCREENING EXAM: MAMMO SCREENING CLINICAL HISTORY: SCREENING, Z12.39 TECHNIQUE: Mammograms were interpreted according to the usual protocol including computer analysis w [employer] CAD system, tomosynthesis and C-view imaging. COMPARISON: 2011 through 2017 FINDINGS: The breasts are composed of heterogeneously dense fibroglandular densities, Breast Density category C . Right breast: There is a spiculated mass in the central right breast slightly cysts superior to the l evel of the nipple measuring roughly 15 millimeters in diameter. There is associated architectural d istortion. There are some associated pleomorphic calcifications. The features are highly suspicious for malignancy. Left breast: No suspicious masses or suspicious microcalcifications are seen. There are numerous sca ttered calcifications throughout the breast. There has been no significant change from prior exams. No skin thickening or abnormal axillary lymph nodes are seen. IMPRESSION: Right breast: New spiculated mass. Spot compression views and ultrasound are requested for further e valuation. Left breast: Negative with benign findings. BI-RADS Cat 0 - Assessment Incomplete: Need additional imaging evaluation Yearly screening mammography is recommended. Breast Density Category C, heterogeneously Dense. The mammogram demonstrates the patient's breast tissue is dense. Dense breast tissue is very common a nd is not abnormal but dense breast tissue can make it harder to find cancer on a mammogram. Also, de nse breast tissue may increase breast cancer risk. This information about the result of the mammogram report was provided to the patient to raise their awareness. Use this report when you speak with the patient about their risks for breast cancer, which includes their family history. At that time, you may recommend additional screening tests (Ultrasound or MRI) as they might be useful based on their r isk. A negative radiographic report should not delay biopsy if a dominant or clinically suspicious mass is present. Up to ten percent of cancers are not identified on mammography. A negative report may reinforce clinical impression. Adenosis and dense breasts may obscure an underlying neoplasm. False positive reports average 6 to 10%.
== END 2020-12-26 02:46 ==
PROVIDERS: PCP Nurse Practitioner Family; Visit Provider Nurse Practitioner Family
DX: Z12.31 Encounter for screening mammogram for malignant neoplasm of breast (principal); R92.8 Other abnormal and inconclusive findings on diagnostic imaging of breast
CPT/HCPCS: 77063; 77067

== ENCOUNTER 2021-01-04 02:06 | Outpatient (CLI) | payer BC, SELFPAY ==
--- NOTE | 2021-01-04 | DI.US_ITS ---
Exam(s) MG MAMMO SCREEN CALL BACK UNI US BREAST RT LIMITED EXAM: MG MAMMO SCREEN CALL BACK UNI and U/S breast RT limited CLINICAL HISTORY: F/U MAMMO, RT SPICULATED MASS,ARCHITECTURAL DISTORTION,CALCIFICATIONS. TECHNIQUE: Craniocaudal and mediolateral oblique Full Field Digital Mammography views of the right b reast with Computer Aided Diagnosis followed by Tomosynthesis and right breast ultrasound. COMPARISON: Priors available for comparison. FINDINGS: Mammography/Tomosynthesis: Masses/Architectural Distortion: The spiculated mass in the upper central right breast persists on th e additional views. There are associated microcalcifications and architectural distortion. Microcalcifictions: Please see the above section. Skin Thickening/Nipple Retraction: None. Right breast US: Echotexture: Normal appearance of the glandular tissue. Shadowing: No suspicious foci. Cyst: None. Solid lesions: There is a spiculated hypoechoic 1.3 x 0.8 x 1.4 cm mass at the 12 o'clock position of the right breast 1 cm from the nipple. This corresponds to the mammographic abnormality. Ductal dilation: None. IMPRESSION: 1. 1.4 cm spiculated mass at the 12 o'clock position of the right breast suspicious for malignancy. 2. Findings were discussed with the patient and the primary care physician on the date of the examina tion. 3. Biopsy is recommended. BI-RADS Category 5 - Highly Suggestive of Malignancy: Biopsy recommended Breast Density - Category C - Heterogeneously dense Breast density Category C or D implies that the patient has dense breast tissue. Dense breast tissue can make it harder to find cancer on a mammogram. Dense breast tissue is also associated with an incr eased risk of breast cancer. This information about the result of the mammogram report was provided to the patient to raise their awareness. Use this report when you speak with the patient about their risks for breast cancer, which includes their family history. At that time, you may recommend additional screening tests (Ultrasoun d or MRI) as these tests may add significant information. A negative radiographic report should not delay biopsy if a dominant or clinically suspicious mass is present. Up to ten percent of cancers are not identified on mammography. A negative report may reinforce clinical impression. Adenosis and dense breasts may obscure an underlying neoplasm. False positive reports average 6 to 10%. Patient will receive a letter notifying them of these results.
== END 2021-01-04 02:26 ==
PROVIDERS: PCP Nurse Practitioner Family; Visit Provider Nurse Practitioner Family
DX: Z12.31 Encounter for screening mammogram for malignant neoplasm of breast (principal); R92.8 Other abnormal and inconclusive findings on diagnostic imaging of breast; N63.12 Unspecified lump in the right breast, upper inner quadrant
CPT/HCPCS: 76642; 77063; 77067

== ENCOUNTER 2021-11-23 12:33 | Outpatient (REF) | payer BC, SELFPAY ==
--- NOTE | 2021-11-23 15:32 | PAPFT_PTH ---
PATIENT: Bre Alamo LOC: [facility]#:[id number] AGE/SX: 61/F ROOM: RE11/23/[address]: Danita Gan : 1960 BED: DIS: 11/23/2021 SPEC #: [id number] RECD: 11/26/21 13:10 STATUS: TESSA REJenny #: [id number] JOLENE: 11/23/21 15:[address]: Danita Gan DEPT: [facility] Cytology RECD BY: Genia Lerma Tissues: 1 - CX/ENDOCX FOR PAP SMEARS Procedures: PAP THIN PREP/UVM Screening HPV DNA PROBE Comments: [id number]
== END 2021-11-23 12:34 | disposition home or self-care (01) ==
LOC: NCHCN 12:33
PROVIDERS: PCP Nurse Practitioner Family; Visit Provider Nurse Practitioner Family
DX: Z12.4 Encounter for screening for malignant neoplasm of cervix (principal); Z11.51 Encounter for screening for human papillomavirus (HPV); Z00.00 Encounter for general adult medical examination without abnormal findings
CPT/HCPCS: 88142; 87624

== ENCOUNTER 2021-12-06 08:06 | Outpatient (REF) | payer BC, SELFPAY ==
[2021-12-06 15:23] LABS: Calculated LDL 148 mg/dL (<100); Cholesterol 228 mg/dL (<200); HDL Cholesterol 58 mg/dL (40-60); Triglyceride 113 mg/dL (<150)
[2021-12-06 15:54] LABS: Hemoglobin A1C 5.8 % (<5.7)
== END 2021-12-06 08:07 | disposition home or self-care (01) ==
LOC: NCHCN 08:06
PROVIDERS: PCP Nurse Practitioner Family; Visit Provider Nurse Practitioner Family
DX: Z13.1 Encounter for screening for diabetes mellitus (principal); Z13.220 Encounter for screening for lipoid disorders
CPT/HCPCS: 80061; 83036

== ENCOUNTER → 2022-01-09 02:22 | Outpatient (CLI) | payer BC, SELFPAY ==
--- NOTE | 2022-01-09 11:15 | DI.MAMMO_ITS ---
Exam(s) MG MAMMO SCREENING 60 MIN DUR EXAM: MG MAMMO SCREENING 60 MIN DUR CLINICAL HISTORY: SCREENING, PERSONAL HX BREAST CA, Z85.3, RT MASTECTOMY. TECHNIQUE: Bilateral full field digital CC and MLO mammographic images were obtained with 3D tomosyn thesis and utilizing computer aided detection (CAD). COMPARISON: Prior mammograms were reviewed, the most recent being December 2020. This patient underwent right mastectomy February 2021 FINDINGS: There has been no significant change in the appearance and distribution of the fibroglandular tissue of the left breast. Asymmetric tissue in left breast is unchanged from prior mammograms. There are no new spiculated masses nor malignant appearing microcalcification groups. There is no new significant architectural distortion nor skin thickening-retraction. IMPRESSION: No radiographic evidence of malignancy in the left breast. BI-RADS Category 2 - Benign Findings Breast Density - Category C - Heterogeneously dense Breast density Category C or D implies that the patient has dense breast tissue. Dense breast tissue can make it harder to find cancer on a mammogram. Dense breast tissue is also associated with an incr eased risk of breast cancer. This information about the result of the mammogram report was provided to the patient to raise their awareness. Use this report when you speak with the patient about their risks for breast cancer, which includes their family history. At that time, you may recommend additional screening tests (Ultrasoun d or MRI) as these tests may add significant information. A negative radiographic report should not delay biopsy if a dominant or clinically suspicious mass is present. Up to ten percent of cancers are not identified on mammography. A negative report may reinforce clinical impression. Adenosis and dense breasts may obscure an underlying neoplasm. False positive reports average 6 to 10%. Patient will receive a letter notifying them of these results.
== END ==
PROVIDERS: PCP Nurse Practitioner Family; Visit Provider Nurse Practitioner Family
DX: Z12.31 Encounter for screening mammogram for malignant neoplasm of breast (principal); Z85.3 Personal history of malignant neoplasm of breast; Z90.11 Acquired absence of right breast and nipple
CPT/HCPCS: 77063; 77067

== ENCOUNTER 2023-01-28 01:33 | Outpatient (CLI) | payer OTHER, SELFPAY ==
--- NOTE | 2023-01-28 10:45 | DI.MAMMO_ITS ---
Exam(s) MG MAMMO SCREENING 60 MIN DUR EXAM: MG MAMMO SCREENING 60 MIN DUR CLINICAL HISTORY: SCREENING, H/O RT BREAST CA AND MASTECTOMY,C50.411,Z17.0 TECHNIQUE: Mammograms were interpreted according to the usual protocol including computer analysis w [employer] CAD system, tomosynthesis and C-view imaging. COMPARISON: 2012 through 2021 FINDINGS: Patient is status post right mastectomy. The left breast is composed of heterogeneously dense fibroglandular densities, Breast Density categor y C. No suspicious masses or suspicious microcalcifications are seen. No skin thickening or abnormal axillary lymph nodes are seen. There has been no significant change from prior exams. IMPRESSION: BI-RADS Category 1, Negative mammogram. Yearly screening mammography is recommended. Breast Density Category C, heterogeneously Dense. The mammogram demonstrates the patient's breast tissue is dense. Dense breast tissue is very common a nd is not abnormal but dense breast tissue can make it harder to find cancer on a mammogram. Also, de nse breast tissue may increase breast cancer risk. This information about the result of the mammogram report was provided to the patient to raise their awareness. Use this report when you speak with the patient about their risks for breast cancer, which includes their family history. At that time, you may recommend additional screening tests (Ultrasound or MRI) as they might be useful based on their r isk. A negative radiographic report should not delay biopsy if a dominant or clinically suspicious mass is present. Up to ten percent of cancers are not identified on mammography. A negative report may reinforce clinical impression. Adenosis and dense breasts may obscure an underlying neoplasm. False positive reports average 6 to 10%.
== END 2023-01-28 01:53 ==
PROVIDERS: PCP Nurse Practitioner Family; Visit Provider Internal Medicine Medical Oncology
DX: Z12.31 Encounter for screening mammogram for malignant neoplasm of breast (principal); R92.2 Inconclusive mammogram
CPT/HCPCS: 77063; 77067

== ENCOUNTER 2023-05-22 16:01 | Outpatient (REF) | payer OTHER, SELFPAY ==
[2023-05-22 18:43] LABS: Abs Immature Grans 0.02 10^3/uL (0.0-0.06); Absolute Basophil Count 0.04 10^3/uL (0.0-0.2); Absolute Eosinophil Count 0.05 10^3/uL (0.0-0.7); Absolute Lymphocyte Count 2.07 10^3/uL (1.2-3.4); Absolute Monocyte Count 0.54 10^3/uL (0.1-0.8); Absolute Neutrophil Count 4.53 10^3/uL (1.2-6.7); Basophils % 0.6; Eosinophils % 0.7; HCT 45.1 % (36.0-46.0); HGB 15.3 g/dL (11.2-15.7); Immature Grans % 0.3; Lymphocytes % 28.6; MCH 29.1 pg (27.0-33.0); MCHC 33.9 % (32.0-36.0); MCV 86 fL (80-95); MPV 9.7 fL (8.0-11.0); Monocytes % 7.4; Neutrophils % 62.4; Platelet Count 199 10^3/uL (130-400); RBC 5.25 10^6/uL (3.93-5.22); RDW 12.6 % (11.7-14.6); RDW-SD 39.6 fL; WBC 7.25 10^3/uL (4.4-10.8)
[2023-05-22 19:11] LABS: ALT 30 U/L (14-59); AST 25 U/L (15-37); Alkaline Phosphatase 93 U/L (46-116); Anion Gap 10.1 mmol/L (3-11); BUN 19 mg/dL (7-18); Bilirubin, Total 0.3 mg/dL (0.2-1.0); CO2 22.9 mmol/L (21.0-32.0); CREATININE 1.2 mg/dL (0.55-1.02); Calcium 9.7 mg/dL (8.5-10.1); Chloride 104 mmol/L (98-107); Glucose 94 mg/dL (74-106); Potassium 4.1 mmol/L (3.5-5.1); Sodium 137 mmol/L (136-145)
[2023-05-22 19:16] LABS: Hemoglobin A1C 5.9 % (<5.7)
[2023-05-22 19:29] LABS: Calculated LDL 166 mg/dL (<100); Cholesterol 264 mg/dL (<200); HDL Cholesterol 53 mg/dL (40-60); Triglyceride 229 mg/dL (<150)
== END 2023-05-22 16:02 | disposition home or self-care (01) ==
LOC: NCHCN 16:01
PROVIDERS: PCP Nurse Practitioner Family; Visit Provider Nurse Practitioner Family
DX: R73.03 Prediabetes (principal); F32.9 Major depressive disorder, single episode, unspecified; Z13.220 Encounter for screening for lipoid disorders
CPT/HCPCS: 80053; 80061; 83036; 85025

== ENCOUNTER 2024-05-21 00:27 | Outpatient (CLI) | payer BC, SELFPAY ==
--- NOTE | 2024-05-21 | DI.CT_ITS ---
Exam(s) CT CHEST WO EXAM: CT CHEST WO CLINICAL HISTORY: ABNL FINDINGS R91.8 1 YR FU. TECHNIQUE: Imaging protocol: Axial computed tomography images were obtained and coronal and sagittal reformatted images were created and reviewed. COMPARISON: CT CT CHEST LUNG CANCER SCREEN from 12/25/[address] CHEST WO from 05/25/[address] CHEST WO from 02/13/2023 FINDINGS: Tracheobronchial tree: Patent where visualized. No bronchiectasis is present. Pulmonary parenchyma: Moderately severe centrilobular pulmonary emphysema. No focal consolidating in filtrates. The nodule in the posterior aspect of the right upper lobe is not calcified. It is other hickman unchanged. The left upper lobe nodule is unchanged. No new pulmonary nodules are present. No architectural distortion. Mediastinum and [place]: No dominant adenopathy or fluid collection. The esophagus is unremarkable.There is a small hiatal hernia. Thyroid gland: Unremarkable. Pleura: No effusion or pneumothorax. Heart: The heart is not dilated. Coronary artery calcifications are present. No pericardial effusion . Aorta: Thoracic aorta non-dilated. Atherosclerotic calcifications are present. Upper abdomen: The left adrenal nodule is unchanged. There is a 4 cm area of decreased attenuation in the medial segment of the left lobe of the liver (series 9, image 123.). Lymph nodes: Within normal limits. Soft tissues: Status post right mastectomy. Bones:Within normal limits for the patient's age. IMPRESSION: 1. Stable pulmonary nodules. No new pulmonary nodules. 2. Stable left adrenal nodule. 3. Area of decreased attenuation in the medial segment of the left lobe of the liver. Its location i s suggestive of focal fatty infiltration. Mass cannot be entirely excluded. Follow-up with CT or MR I of the abdomen without and with contrast is recommended. Unexpected findings RADIATION DOSE DELIVERED: 268.23mGy.cm Total DLP 268.23mGy.cm Total DLP DATA REPOSITORY: All CT scans at this facility are submitted to the National Radiology Data Registry (NRDR) Dose Index Registry (DIR) with the [employer] (A[employer]). RADIATION OPTIMIZATION: All CT scans at this facility use at least one of these dose optimization te chniques: automated exposure control; mA and/or kV adjustment per patient size (includes targeted exa ms where dose is matched to clinical indication); or iterative reconstruction.
--- NOTE | 2024-05-21 | DI.MAMMO_ITS ---
Exam(s) MG MAMMO SCREENING 60 MIN DUR EXAM: MG MAMMO SCREENING 60 MIN DUR CLINICAL HISTORY: SCREENING C50.419 BREAST CANCER. TECHNIQUE: Craniocaudal and mediolateral oblique Full Field Digital Mammography views of the left br east with Computer Aided Diagnosis. COMPARISON: Comparison is made with prior examinations. FINDINGS: Mammography/Tomosynthesis: The patient is status post right mastectomy. Masses/Architectural Distortion: None seen. Microcalcifictions: No suspicious pleomorphic-type are seen. Skin Thickening/Nipple Retraction: None. IMPRESSION: 1. No evidence of malignancy is noted. 2. Unless there is more urgent need, follow-up screening mammography is recommended, as per [employer] [employer] guidelines. 3. The findings were discussed with the patient on the date of the examination. BI-RADS Category 1 - Negative Breast Density - Category B - Scattered areas of fibroglandular density Breast density Category C or D implies that the patient has dense breast tissue. Dense breast tissue can make it harder to find cancer on a mammogram. Dense breast tissue is also associated with an incr eased risk of breast cancer. This information about the result of the mammogram report was provided to the patient to raise their awareness. Use this report when you speak with the patient about their risks for breast cancer, which includes their family history. At that time, you may recommend additional screening tests (Ultrasoun d or MRI) as these tests may add significant information. A negative radiographic report should not delay biopsy if a dominant or clinically suspicious mass is present. Up to ten percent of cancers are not identified on mammography. A negative report may reinforce clinical impression. Adenosis and dense breasts may obscure an underlying neoplasm. False positive reports average 6 to 10%. Patient will receive a letter notifying them of these results.
== END 2024-05-21 00:47 ==
PROVIDERS: Visit Provider Nurse Practitioner Family
DX: Z12.31 Encounter for screening mammogram for malignant neoplasm of breast (principal); Z85.3 Personal history of malignant neoplasm of breast; R91.1 Solitary pulmonary nodule
CPT/HCPCS: 71250; 77063; 77067

== ENCOUNTER 2024-05-25 02:00 | Outpatient (CLI) | payer BC, SELFPAY ==
[2024-05-25 15:59] LABS: Anion Gap 11.9 mmol/L (3-11); BUN 13 mg/dL (7-18); CO2 24.1 mmol/L (21.0-32.0); CREATININE 1.1 mg/dL (0.55-1.02); Calcium 9.4 mg/dL (8.5-10.1); Chloride 106 mmol/L (98-107); Estimated GFR 56.81 (mL/min/1.73m2); Glucose 103 mg/dL (74-106); Potassium 4.1 mmol/L (3.5-5.1); Sodium 142 mmol/L (136-145)
== END 2024-05-25 02:01 | disposition home or self-care (01) ==
PROVIDERS: Visit Provider Student in an Organized Health Care Education/Training Program
DX: R93.2 Abnormal findings on diagnostic imaging of liver and biliary tract (principal)
CPT/HCPCS: 36415; 80048

== ENCOUNTER 2024-06-16 01:08 | Outpatient (CLI) | payer BC, SELFPAY ==
[2024-06-16] MEDS: Gadoterate meglumine 20 ML VIAL IVP (09:51)
[2024-06-16] MEDS: Normal Saline - Diluent 50 ML VIAL 25 ML IJ (09:52)
--- NOTE | 2024-06-16 10:45 | DI.MRI_ITS ---
Exam(s) MR ABDOMEN WO/W EXAM: MR ABDOMEN WO/W CLINICAL HISTORY: ABNL FINDINGS CT CHEST 4 CM LIVER AREA, FATTY LIVER INFILTRATION VS MASS TECHNIQUE: Multiplanar multisequence MRI of the Abdomen was performed. CONTRAST MATERIAL: IV Contrast: 20 mL of Dotarem contrast administered. COMPARISON: CT CT CHEST LUNG CANCER SCREEN from 12/25/[address] CHEST WO from 02/13/[address] CHEST WO from 05/21/2024 FINDINGS: Liver: 4.1 by 2.5 by 4.6 centimeter circumscribed low T1 high T2 signal lesion with several thin sept ations. No enhancement within the septations or within the substance of the lesion. In retrospect the lesion was present on the [address] It appears unchanged in size and appearance. Pancreas: Unremarkable. Gallbladder and Bile Ducts: Unremarkable. Adrenals: 13 millimeter left adrenal nodule with signal characteristics of a benign adenoma. Kidneys: Unremarkable. Spleen: Unremarkable. Aorta: Unremarkable. Soft Tissues: For soft tissue right mastectomy. Bone: Unremarkable. Lymph Nodes: Unremarkable. Lung bases: Unremarkable. Stomach and bowel: Unremarkable. Peritoneal cavity: Unremarkable. No evidence of ascites. IMPRESSION: Liver lesion has the appearance of a septated cyst. No suspicious features to suggest malignancy. DATA REPOSITORY:
== END 2024-06-16 01:28 ==
LOC: DI 01:08
PROVIDERS: Visit Provider Student in an Organized Health Care Education/Training Program
DX: K76.0 Fatty (change of) liver, not elsewhere classified (principal)
CPT/HCPCS: 74183

== ENCOUNTER 2025-05-25 01:10 | Outpatient (CLI) | payer BC, SELFPAY ==
--- NOTE | 2025-05-25 | DI.CT_ITS ---
Exam(s) CT CHEST WO EXAM: CT CHEST WO CLINICAL HISTORY: PULMONARY NODULES,NON SPECIFIC ABN FINDINGS R91.8. TECHNIQUE: Imaging protocol: Axial computed tomography images were obtained and coronal and sagittal reformatted images were created and reviewed. Lung Computer Aided Detection (CAD) was utilized. COMPARISON: CT CT CHEST WO from 02/13/[address] CHEST WO from 05/21/2024 MR MR ABDOMEN WO/W from 06/16/2024 FINDINGS: Tracheobronchial tree: Patent where visualized. No bronchiectasis is present. Pulmonary parenchyma: No consolidation or dominant measurable mass. Moderately severe emphysematous changes are present again seen in the lungs. The nodule in the posterior aspect of the right upper lobe is unchanged. There are no new pulmonary nodules. Mediastinum and [place]: No dominant adenopathy or fluid collection. The esophagus is unremarkable. Thyroid gland: Unremarkable. Pleura: No effusion or pneumothorax. Heart: The heart is not dilated. Coronary artery calcification is present. No pericardial effusion. Aorta: Thoracic aorta non-dilated. Atherosclerotic calcification is present. Upper abdomen: There has been no change in appearance of the 4 cm area of decreased attenuation in the subcapsular portion of the liver. This was shown to be a cyst on the MRI examination from 06/16/2024. Lymph nodes: Within normal limits. Soft tissues: The patient is status post right mastectomy. Bones:Within normal limits for the patient's age. IMPRESSION: 1. Stable pulmonary nodules. There are no new pulmonary nodules. 2. There is no acute pulmonary process. RADIATION DOSE DELIVERED: 188.24mGy.cm Total DLP 188.24mGy.cm Total DLP DATA REPOSITORY: All CT scans at this facility are submitted to the National Radiology Data Registry (NRDR) Dose Index Registry (DIR) with the [employer] ([employer]). RADIATION OPTIMIZATION: All CT scans at this facility use at least one of these dose optimization techniques: automated exposure control; mA and/or kV adjustment per patient size (includes targeted exams where dose is matched to clinical indication); or iterative reconstruction.
--- NOTE | 2025-05-25 11:05 | DI.MAMMO_ITS ---
Exam(s) MG MAMMO SCREENING 60 MIN DUR EXAM: MG MAMMO SCREENING 60 MIN DUR CLINICAL HISTORY: SCREENING, Z12.31,personal h/o breast ca TECHNIQUE: Bilateral full field digital CC and MLO mammographic images were obtained with 3D tomosynthesis and utilizing computer aided detection (CAD). COMPARISON: Comparison is made with prior examinations. FINDINGS: The patient is status post right mastectomy. Masses/Architectural Distortion: No suspicious masses or areas of architectural distortion are present. Microcalcifications: No suspicious pleomorphic-type are seen. Skin Thickening/Nipple Retraction: None. IMPRESSION: 1. No significant interval change with no specific features of malignancy noted. 2. Unless there is more urgent need, screening mammography is recommended, as per [employer] [employer] guidelines. 3. Findings were discussed with the patient on the date of the examination. BI-RADS Category 1 - Negative Breast Density - Category B - There are scattered areas of fibroglandular density. Breast density Category C or D implies that the patient has dense breast tissue. Dense breast tissue can make it harder to find cancer on a mammogram. Dense breast tissue is also associated with an increased risk of breast cancer. This information about the result of the mammogram report was provided to the patient to raise their awareness. Use this report when you speak with the patient about their risks for breast cancer, which includes their family history. At that time, you may recommend additional screening tests (Ultrasound or MRI) as these tests may add significant information. A negative radiographic report should not delay biopsy if a dominant or clinically suspicious mass is present. Up to ten percent of cancers are not identified on mammography. A negative report may reinforce clinical impression. Adenosis and dense breasts may obscure an underlying neoplasm. False positive reports average 6 to 10%. Patient will receive a letter notifying them of these results.
== END 2025-05-25 01:30 ==
PROVIDERS: PCP Student in an Organized Health Care Education/Training Program; Visit Provider Student in an Organized Health Care Education/Training Program
DX: Z12.31 Encounter for screening mammogram for malignant neoplasm of breast (principal)
CPT/HCPCS: 71250; 77063; 77067

== ENCOUNTER 2025-08-03 14:03 | Outpatient (REF) | payer BC, SELFPAY ==
[2025-08-03 16:34] LABS: Abs Immature Grans 0.03 10^3/uL (0.0-0.06); HCT 39.1 % (36.0-46.0); HGB 13.3 g/dL (11.2-15.7); Immature Grans % 0.4 %; MCH 29.6 pg (27.0-33.0); MCHC 34.0 % (32.0-36.0); MCV 87 fL (80-95); MPV 10.0 fL (8.0-11.0); Platelet Count 187 10^3/uL (130-400); RBC 4.50 10^6/uL (3.93-5.22); RDW 13.6 % (11.7-14.6); RDW-SD 43.5 fL; WBC 7.44 10^3/uL (4.4-10.8)
[2025-08-03 16:55] LABS: Hemoglobin A1C 4.9 % (<5.7)
[2025-08-03 16:58] LABS: ALT 10 U/L (10-49); AST 14 U/L (<34); Albumin 4.3 g/dL (3.2-5.0); Alkaline Phosphatase 88 U/L (46-116); Anion Gap 10.7 mmol/L (3-11); BUN 20 mg/dL (9-23); Bilirubin, Total 0.3 mg/dL (0.2-1.2); CO2 24.3 mmol/L (20.0-31.0); Calcium 9.3 mg/dL (8.3-10.6); Chloride 107 mmol/L (98-107); Cholesterol 246 mg/dL (<200); Glucose 88 mg/dL (74-106); HDL Cholesterol 52 mg/dL (>or=50); Potassium 4.6 mmol/L (3.5-5.1); Sodium 142 mmol/L (136-145); TSH (W/Ref FT4) 2.14 uIU/mL (0.55-4.78); Total Protein 6.8 g/dL (5.7-8.2)
== END 2025-08-03 14:04 | disposition home or self-care (01) ==
LOC: NCHCN 14:03
PROVIDERS: PCP Student in an Organized Health Care Education/Training Program; Visit Provider Student in an Organized Health Care Education/Training Program
DX: R73.03 Prediabetes (principal); F41.9 Anxiety disorder, unspecified; Z13.220 Encounter for screening for lipoid disorders
CPT/HCPCS: 80053; 80061; 83036; 84443; 85025